=== PATIENT | male | born 1965 | race Caucasian/White ===

== ENCOUNTER 2018-09-29 23:27 | Emergency (ER) | payer SELFPAY ==
[2018-09-29 23:46] LABS: ABSOLUTE BASOPHILS # (AUTO) 0.1 10^3/uL (0.0-0.2); ABSOLUTE EOSINOPHILS # (AUTO) 0.3 10^3/uL (0.0-0.6); ABSOLUTE LYMPHOCYTES (AUTO) 3.5 10^3/uL (0.5-4.7); ABSOLUTE MONOCYTES (AUTO) 0.6 10^3/uL (0.1-1.4); ABSOLUTE NEUT (AUTO) 6.1 10^3/uL (1.7-8.2); BASOPHILS % (AUTO) 0.8 % (0-2); EOSINOPHILS % (AUTO) 2.4 % (0-6); HEMATOCRIT 45.6 % (37.9-51.0); HEMOGLOBIN 15.7 g/dL (13.5-17.0); LYMPHOCYTES % (AUTO) 33.7 % (13-45); MEAN CORPUSCULAR HEMOGLOBIN 31.3 pg (27.0-33.4); MEAN CORPUSCULAR HGB CONC 34.4 g/dL (32.0-36.0); MEAN CORPUSCULAR VOLUME 91 fl (80-97); MONOCYTES % (AUTO) 5.3 % (3-13); PLATELET COUNT 216 10^3/uL (150-450); RED BLOOD COUNT 5.02 10^6/uL (4.35-5.55); RED CELL DISTRIBUTION WIDTH 13.8 % (11.5-14.0); SEGMENTED NEUTROPHILS % (AUTO) 57.8 % (42-78); TOTAL CELLS COUNTED % (AUTO) 100 %; WHITE BLOOD COUNT 10.5 10^3/uL (4.0-10.5)
[2018-09-30 00:03] LABS: ALANINE AMINOTRANSFERASE 25 U/L (21-72); ALBUMIN 4.4 g/dL (3.5-5.0); ALCOHOL 158 mg/dL (NONE DETECTED); ALKALINE PHOSPHATASE 138 U/L (38-126); ANION GAP 15 (5-19); ASPARTATE AMINO TRANSFERASE 24 U/L (17-59); BILIRUBIN,DIRECT 0.3 mg/dL (0.0-0.4); BILIRUBIN,TOTAL 0.5 mg/dL (0.2-1.3); BLOOD UREA NITROGEN 10 mg/dL (7-20); CALCIUM 8.8 mg/dL (8.4-10.2); CARBON DIOXIDE 20 mmol/L (22-30); CHLORIDE 105 mmol/L (98-107); GLUCOSE 104 mg/dL (75-110); SODIUM 140.1 mmol/L (137-145); TOTAL PROTEIN 7.4 g/dL (6.3-8.2)
[2018-09-30 00:05] LABS: ACETAMINOPHEN < 10 ug/mL (10-30); SALICYLATE < 1.0 mg/dL (2.0-20.0)
--- NOTE | 2018-09-30 00:06 | ER Document Report ---
ED General - General Stated Complaint: POSSIBLE OVERDOSE Time Seen by Provider: 09/29/18 23:34 Notes: Patient is a 52-year-old male with history of depression, and alcohol abuse that presents to the emergency department for chief complaint of intentional overdose. Patient reportedly took a handful of [id number] naproxen tablets, reporting 15 of them, he also states he took about 15 tablets of a pain medication which he does not recall which one, he states there are friend's pain medication that was given to him he does not know what is called. This occurred about 2 hours prior to ED arrival, he called EMS for himself. He states that his dog has been sick, his girlfriend broke up with them, he has been in financial trouble, unable to afford his rent, and multiple bills, he states he is come to a point where his life is not worth living anymore. EMS had administered activated charcoal. Past Medical History: Depression, arthritis, alcohol abuse, chronic back pain Past Surgical History: Denies recent or pertinent surgical history Social History: Admits to smoking cigarettes, denies illicit drug use, but admits to drinking alcohol on a daily basis Family History: Reviewed and noncontributory for presenting illness Allergies: Reviewed, see documented allergy list. REVIEW OF SYSTEMS: Other than noted above, the 12 point review of systems was reviewed with the patient and were negative, all pertinent findings are included in the HPI. PHYSICAL EXAMINATION: Vital signs reviewed, nursing noted reviewed. GENERAL: Well-appearing, well-nourished and in no acute distress. HEAD: Atraumatic, normocephalic. EYES: Eyes appear normal, extraocular movements intact, sclera anicteric, conjunctiva are normal. ENT: nares patent, oropharynx clear without exudates. Moist mucous membranes. NECK: Normal range of motion, supple without lymphadenopathy LUNGS: Breath sounds clear to auscultation bilaterally and equal. No wheezes rales or rhonchi. HEART: Regular rate and rhythm without murmurs ABDOMEN: Soft, nontender, normoactive bowel sounds. No rebound, guarding, or rigidity. No masses appreciated. EXTREMITIES: Nontender, good range of motion, no pitting or edema. NEUROLOGICAL: No focal neurological deficits. Moves all extremities spontaneously Motor and sensory grossly intact on exam. PSYCH: Patient goes off on tangents when talking, and rambles on, he is not having any hallucinations, but does have poor insight and judgment at this time. SKIN: Warm, Dry, normal turgor, no rashes or lesions noted on exposed skin - Related Data Allergies/Adverse Reactions: No Known Allergies Allergy (Verified 09/30/18 02:30) Past Medical History - Social History Smoking Status: Current Every Day Smoker Family History: Reviewed & Not Pertinent Physical Exam - Vital signs Vitals: Temp Resp Pulse Ox 98.1 F 21 H 95 09/29/18 23:43 09/29/18 23:43 09/29/18 23:43 Course - Re-evaluation Re-evalutation: Patient seen and examined, vital signs reviewed. Medical screening testing was ordered including bloodwork, EKG, and toxicology. Results of testing were reviewed. Testing demonstrated alcohol level 157, which was expected, the patient does appear mildly intoxicated, he had ingested naproxen, there is no renal or liver impairment on his laboratory testing today, his Tylenol levels negative as well, will repeat this at 4 hours from the time of ingestion to make sure he has been do not know which prescription pain medication he took today. Patient has been stable from a hemodynamic standpoint. Repeat Tylenol level was negative and undetectable. At this point I feel that the patient is medically cleared and can be further evaluated from a psychiatric standpoint for final disposition from the emergency department. Patient updated on plan of care. Laboratory 09/29/18 09/29/18 23:35 23:35 WBC 10.5 RBC 5.02 Hgb 15.7 Hct 45.6 MCV 91 MCH 31.3 MCHC 34.4 RDW 13.8 Plt Count 216 Seg Neutrophils % 57.8 Lymphocytes % 33.7 Monocytes % 5.3 Eosinophils % 2.4 Basophils % 0.8 Absolute Neutrophils 6.1 Absolute Lymphocytes 3.5 Absolute Monocytes 0.6 Absolute Eosinophils 0.3 Absolute Basophils 0.1 Sodium 140.1 Potassium 4.0 Chloride 105 Carbon Dioxide 20 L Anion Gap 15 BUN 10 Creatinine 0.81 Est GFR ( Amer) > 60 Est GFR (Non-Af Amer) > 60 Glucose 104 Calcium 8.8 Total Bilirubin 0.5 Direct Bilirubin 0.3 Neonat Total Bilirubin Not Reportable Neonat Direct Bilirubin Not Reportable Neonat Indirect Bili Not Reportable AST 24 ALT 25 Alkaline Phosphatase 138 H Total Protein 7.4 Albumin 4.4 Salicylates < 1.0 L Acetaminophen < 10 L Serum Alcohol 158 - Vital Signs Vital signs: Temp Pulse Resp BP Pulse Ox 97.8 F 66 20 100/58 L 96 09/30/18 02:59 09/30/18 02:59 09/30/18 02:59 09/30/18 02:59 09/30/18 02:59 - Laboratory Result Diagrams: 09/29/18 23:35 09/29/18 23:35 Laboratory results interpreted by me: 09/29/18 09/30/18 23:35 02:25 Carbon Dioxide 20 L Alkaline Phosphatase 138 H Salicylates < 1.0 L Acetaminophen < 10 L < 10 L - EKG Interpretation by Me Additional EKG results interpreted by me: EKG demonstrates sinus rhythm with a ventricular rate of 67 bpm, normal axis, normal intervals, no evidence of acute ischemia. Discharge - Discharge Clinical Impression: Suicidal ideations Overdose Qualifiers: Encounter type: initial encounter Injury intent: intentional self-harm Qualified Code(s): T50.902A - Poisoning by unspecified drugs, medicaments and biological substances, intentional self-harm, initial encounter Condition: Stable Disposition: PSYCH HOSP/UNIT
[2018-09-30 06:17] LABS: APPEARANCE,URINE SLIGHTLY-CLOUDY; BILIRUBIN,URINE NEGATIVE (NEGATIVE); COLOR,URINE AMBER; GLUCOSE, URINE NEGATIVE (NEGATIVE); KETONES,URINE NEGATIVE (NEGATIVE); LEUKOCYTE ESTERASE,URINE NEGATIVE (NEGATIVE); NITRITE,URINE NEGATIVE (NEGATIVE); PROTEIN,URINE NEGATIVE (NEGATIVE); URINE SPECIFIC GRAVITY 1.028; UROBILINOGEN,URINE NEGATIVE mg/dL (<2.0)
[2018-09-30 06:33] LABS: URINE AMPHETAMINES SCREEN NEGATIVE; URINE BARBITURATES SCREEN NEGATIVE; URINE BENZODIAZEPINES SCREEN NEGATIVE; URINE COCAINE SCREEN NEGATIVE; URINE MARIJUANA (THC) SCREEN NEGATIVE; URINE METHADONE SCREEN NEGATIVE; URINE PHENCYCLIDINE SCREEN NEGATIVE
[2018-09-30] MEDS ORDERED: VENLAFAXINE HCL 37.5 MG CAP.SR.24H PO SCH (11:00)
[2018-09-30] MEDS: BUSPIRONE HCL 10 MG TABLET PO SCH ×2 (11:26→18:00)
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
--- NOTE | 2018-09-30 16:51 | ER Document Report ---
Doctor's Note Notes: 09/30/18 16:50 Rounds: Chart reviewed and patient interviewed. Patient here for evaluation for having taken an overdose of [id number] mixture of meds. Patient says he has been feeling depressed for some time now. Also has a problem with alcohol abuse. Vital signs are all essentially normal. Lab studies are unremarkable except for patient's blood alcohol of 158. Patient appears to be medically stable for transfer or discharge. Lianne Choudhury MD
--- NOTE | 2018-09-30 17:59 | EKG REPORT ---
SEVERITY:- NORMAL ECG - SINUS RHYTHM : Confirmed by: Jania Fitzpatrick 30-Sep-2018 17:58:23
[2018-09-30 18:21] VITALS: BP 125/78
[2018-09-30] MEDS ORDERED: CLONIDINE HCL 0.1 MG TABLET PO SCH (22:00)
== END 2018-09-30 18:25 ==
LOC: ER 09-30 00:51
DX: T39.312A Poisoning by propionic acid derivatives, intentional self-harm, initial encounter (principal); Y92.9 Unspecified place or not applicable; F17.210 Nicotine dependence, cigarettes, uncomplicated
CPT/HCPCS: 93005; 99285; 36415 ×2; 80307 ×5; 85025; 80053; 81001; 93010; J3490

== ENCOUNTER 2019-01-19 15:48 | Emergency (ER) | payer OTHER ==
[2019-01-19 16:01] VITALS: BP 150/82
[2019-01-19] MEDS ORDERED: KETOROLAC TROMETHAMINE 60 MG/2 ML SDV IM ONE (16:25)
[2019-01-19] MEDS ORDERED: HYDROCODONE/ACETAMINOPHEN 5-325 MG (6 TAB/ER DISP) PO PRN (16:25)
[2019-01-19] MEDS ORDERED: DEXAMETHASONE SOD PHOS INJ 10 MG/1 ML VIAL IM ONE (16:25)
[2019-01-19] MEDS ORDERED: LIDOCAINE 5% (700 MG) TRANSDERMAL ADH..PATCH TP ONE (16:25)
--- NOTE | 2019-01-19 16:32 | ER Document Report ---
HPI - HPI Time Seen by Provider: 01/19/19 16:08 Pain Level: 4 Notes: Patient is an otherwise healthy 53-year-old male presenting to the emergency department with low back pain that radiates down his right leg. He reports history of similar pain over the last few years. He reports intermittently the pain flares up and he is to come in to get "injections" which helped his back pain. Patient denies any loss of control of bowel or bladder, denies any urinary retention and denies any saddle anesthesia. Patient reports he is otherwise well and has not had any fever. - MUSCULOSKELETAL Musculoskeletal: REPORTS: Extremity pain Past Medical History - General Information source: Patient - Social History Smoking Status: Current Every Day Smoker Frequency of alcohol use: None Drug Abuse: None Family History: Reviewed & Not Pertinent Patient has suicidal ideation: No Patient has homicidal ideation: No - Medical History Medical History: Negative Renal/ Medical History: Denies: Hx Peritoneal Dialysis Surgical Hx: Negative - Immunizations Immunizations up to date: Yes Vertical Provider Document - CONSTITUTIONAL Notes: PHYSICAL EXAMINATION: GENERAL: Well-appearing, well-nourished and in no acute distress. HEAD: Atraumatic, normocephalic. EYES: Pupils equal round extraocular movements intact, conjunctiva are normal. ENT: Nares patent NECK: Normal range of motion LUNGS: No respiratory distress Musculoskeletal: Tenderness to palpation to right lumbar paraspinous area with extension to right buttock. No vertebral tenderness, step-off or deformity. NEUROLOGICAL: Face symmetric. Tongue protrudes midline. Extraocular motions intact. Pupils are 2 mm and equally reactive. Normal speech, normal gait. 5 out of 5 strength in both the distal and proximal upper and lower extremities bilaterally. Sensation is grossly intact throughout. Finger to nose testing normal. Pronator drift normal. PSYCH: Normal mood, normal affect. SKIN: Warm, Dry, normal turgor, no rashes or lesions noted. - INFECTION CONTROL TRAVEL OUTSIDE OF THE [place] IN LAST 30 DAYS: No Course - Re-evaluation Re-evalutation: Presentation of a well appearing patient complaining of acute on chronic back pain. No rapid progression of symptoms, systemic symptoms including fevers, chills, weight loss, history of recent bacterial infection, bilateral symptoms, numbness, weakness, difficulty walking, urinary retention or bowel incontinence, personal history of cancer, immunosuppression, diabetes, known AAA, or history of IV drug use. Exam is without point tenderness over vertebral bodies, pulsatile abdominal mass, and patient has symmetric and intact lower extremity strength, sensation, and reflexes without clonus. 2+ symmetric medial malleolar and dorsalis pedis pulses Based on history and physical, I have a very low suspicion of a concerning etiology of pain including epidural compression syndrome, spinal infection, transverse myelitis, malignancy, abdominal aortic aneurysm, renal colic, acute lower extremity claudication, neurogenic claudication, ankylosing spondylitis, or other intra-abdominal process. Due to absence of concerning risk factors in history and physical as well as absence of rapidly progressive, severe, or bilateral symptoms, will defer imaging at this point. Patient reports significant improvement of his pain after administration of medications here in the emergency department. Patient will be discharged home in stable condition with a prescription for Flexeril and instructions to take ibuprofen. Patient understands ED return precautions. - Vital Signs Vital signs: Temp Pulse Resp BP Pulse Ox 97.8 F 96 18 150/82 H 01/19/19 15:59 01/19/19 15:59 01/19/19 15:59 01/19/19 15:59 Discharge - Discharge Clinical Impression: Back pain Qualifiers: Back pain location: low back pain Chronicity: chronic Back pain laterality: right Sciatica presence: with sciatica Sciatica laterality: sciatica of right side Qualified Code(s): M54.41 - Lumbago with sciatica, right side; G89.29 - Other chronic pain Condition: Stable Disposition: HOME, SELF-CARE Additional Instructions: You have been seen in the Emergency Department (ED) today for back pain. Your workup and exam have not shown any acute abnormalities and you are likely suffering from muscle strain or possible problems with your discs, but there is no treatment that will fix your symptoms at this time. Please take the muscle relaxer that has been prescribed as directed. Take ibuprofen 600 mg every 6 hours. You should also purchase a local lidocaine cream such as "aspercreme with lidocaine" and use per bottle instructions to the affected area. Apply heat to the area as often as you are able. Continue to keep active and avoid prolonged periods of bed rest. Please follow up with your doctor as soon as possible regarding today's ED visit and your back pain. Return to the ED for worsening back pain, fever, weakness or numbness of either leg, or if you develop either (1) an inability to urinate or have bowel movements, or (2) loss of your ability to control your bathroom functions (if you start having "accidents"), or if you develop other new symptoms that concern you.concern you. Prescriptions: Cyclobenzaprine HCl [Flexeril 10 mg Tablet] 10 mg PO TID #21 tablet
== END 2019-01-19 16:55 | disposition home or self-care (01) ==
LOC: ER 15:48
DX: M54.41 Lumbago with sciatica, right side (principal); G89.29 Other chronic pain; M79.604 Pain in right leg; F17.200 Nicotine dependence, unspecified, uncomplicated
CPT/HCPCS: 99283; 96372; J1885; J1100

== ENCOUNTER 2019-01-24 11:56 | Emergency (ER) | payer OTHER ==
[2019-01-24] MEDS ORDERED: KETOROLAC TROMETHAMINE 60 MG/2 ML SDV IM ONE (12:08)
--- NOTE | 2019-01-24 12:09 | ER Document Report ---
ED Medical Screen (RME) - General Chief Complaint: Back Pain Stated Complaint: BACK PAIN Time Seen by Provider: 01/24/19 12:02 Mode of Arrival: Ambulatory Information source: Patient Notes: Patient presents complaining of a flareup of right lower back pain that radiates to the right lower extremity. Patient states pain is typical flareups that he has had in the past. Patient denies any new injury, fever, urinary retention or incontinence. I have greeted and performed a rapid initial assessment of this patient. A comprehensive ED assessment and evaluation of the patient, analysis of test results and completion of the medical decision making process will be conducted by additional ED providers. TRAVEL OUTSIDE OF THE [place] IN LAST 30 DAYS: No - Related Data Allergies/Adverse Reactions: No Known Allergies Allergy (Verified 01/24/19 12:06) Past Medical History Renal/ Medical History: Denies: Hx Peritoneal Dialysis - Immunizations Immunizations up to date: Yes Physical Exam - Vital signs Vitals: Temp Pulse Resp BP Pulse Ox 97.6 F 100 18 110/74 97 01/24/19 12:01 01/24/19 12:01 01/24/19 12:01 01/24/19 12:01 01/24/19 12:01 - General General appearance: Appears well, Alert Notes: Right lower lumbar tenderness, normal gait Course - Vital Signs Vital signs: Temp Pulse Resp BP Pulse Ox 97.6 F 100 18 110/74 97 01/24/19 12:01 01/24/19 12:01 01/24/19 12:01 01/24/19 12:01 01/24/19 12:01
--- NOTE | 2019-01-24 13:11 | ER Document Report ---
HPI - HPI Time Seen by Provider: 01/24/19 12:02 Pain Level: 5 Context: Patient is a 53-year-old male with a history of chronic back pain who presents to the emergency department with a chief complaint of right lower back pain. Patient reports this is been present for 8 days. Patient reports he was seen here on Friday with the same symptoms and was given a muscle relaxer and a narcotic medication. Patient states while he was here he was given an injection. Patient states he has been taking medications as prescribed without help. Patient reports this does feel like his normal flare of right lower back pain. Patient reports a history of sciatica and states that there is a burning sensation down his right leg. Patient does report numbness to the right leg. Patient denies saddle anesthesia or loss of bowel or bladder. Patient reports the pain is constant and does not get worse with certain movements. - MUSCULOSKELETAL Musculoskeletal: REPORTS: Extremity pain Past Medical History - General Information source: Patient - Social History Smoking Status: Current Every Day Smoker Lives with: Family Family History: Reviewed & Not Pertinent Patient has suicidal ideation: No Patient has homicidal ideation: No - Past Medical History Cardiac Medical History: Reports: None Pulmonary Medical History: Reports: None EENT Medical History: Reports: None Neurological Medical History: Reports: None Endocrine Medical History: Reports: None Renal/ Medical History: Reports: None. Denies: Hx Peritoneal Dialysis Malignancy Medical History: Reports None GI Medical History: Reports: None Musculoskeletal Medical History: Reports None Skin Medical History: Reports None Psychiatric Medical History: Reports: None Traumatic Medical History: Reports: None Infectious Medical History: Reports: None Past Surgical History: Reports: None - Immunizations Immunizations up to date: Yes Vertical Provider Document - CONSTITUTIONAL Agree With Documented VS: Yes Exam Limitations: No Limitations General Appearance: No Apparent Distress - INFECTION CONTROL TRAVEL OUTSIDE OF THE [place] IN LAST 30 DAYS: No - HEENT HEENT: Atraumatic, Normocephalic, PERRLA - RESPIRATORY Respiratory: Breath Sounds Normal, No Respiratory Distress - CARDIOVASCULAR Cardiovascular: Regular Rate, Regular Rhythm - GI/ABDOMEN Gastrointestinal: Abdomen Soft, Abdomen Non-Tender - BACK Notes: Right paraspinal tenderness with palpation. There is no cervical, thoracic or lumbar midline tenderness. - NEURO Level of Consciousness: Awake, Alert, Appropriate - DERM Integumentary: Warm, Dry, No Rash Course - Re-evaluation Re-evalutation: 01/24/19 13:11 Patient reports in the past he has had been to multiple urgent cares and gotten an injection of some type of medication which did help with this pain. Patient states he does not know the name of this injection. Patient states he does not have a primary care physician and has just been dealing with this pain for years. Patient reports having chronic back pain since the . 01/24/19 13:45 Patient moved to a room with a stretcher to perform a more thorough examination of his back. Patient in no acute distress. Patient is ambulating with a steady gait. Normal speech, normal gait. No focal neurological deficits, normal upper and lower extremity strength. When performing the straight leg raise test (negative) due to the patient complaints of increased right lower back pain as well as pain to the back of the right thigh. 14:15 I did offer the patient a CT scan of the lower back since the patient states he has not had any recent imaging. Patient states he does not want this at this time. Patient reports he has seen multiple doctors in the past and they cannot give him any answers as to why he gets these flares in his back. Patient denies injury or fall. We will place the patient on a prednisone taper. Patient was given strict return precautions. - Vital Signs Vital signs: Temp Pulse Resp BP Pulse Ox 97.6 F 100 18 110/74 97 01/24/19 12:01 01/24/19 12:01 01/24/19 12:01 01/24/19 12:01 01/24/19 12:01 Discharge - Discharge Clinical Impression: Sciatica of right side, Pain of back and right lower extremity Condition: Stable Disposition: HOME, SELF-CARE Additional Instructions: Today you are seen the emergency department for low back pain. Your symptoms are consistent with sciatica as he reports this does feel like a flare of your chronic pain. We have politely declined a CT scan of the lumbar spine. I am placing you on a steroid taper. Please take these as prescribed. Please return if your symptoms change or worsen to include loss of bowel or bladder, increased numbness or tingling or inability to usual lower extremities. LOW BACK PAIN: Three out of every four people will have an episode of disabling back pain during their lifetime. Most commonly the pain is due to straining of the muscles and ligaments in the low back. Usual treatment includes: (1) Rest on a firm surface. Avoid lying on your stomach. (2) Ice pack the painful area. After a few days, gentle heat may be used intermittently to relax the area, or ice packs can be continued. (3) Medication may be needed -- muscle relaxers and antiinflammatory medicines are commonly used. (4) As the back improves, exercises are prescribed to strengthen the back and a bdominal muscles. Your doctor will advise you on the proper care for your back at each stage in your recovery. You may be better in a few days -- or healing may take several weeks. If new symptoms of a "herniated disc" (radiation of pain, numbness, or tingling down the back of the leg or weakness in the leg) occur, you should be re-examined. Further testing may be necessary. PAIN MEDICATION INJECTION: You have received an injection of a pain medication. You should experience significant pain relief within 45 minutes. If this injection was a narcotic -- it will impair your judgement, slow your reaction time and make you sleepy (as well as relieve your pain). Narcotics also can cause nausea. You should not drive, work with machinery, or perform any task requiring m ental alertness until all effects of the medication are gone -- six to eight hours. Do not take any alcohol, or sedatives, and do not take any other medication without checking with your physician. ORAL NARCOTIC MEDICATION: You have been given a prescription for pain control. This medication is a narcotic. It's best taken with food, as nausea can result if taken on an empty stomach. Don't operate machinery or drive within six hours of taking this medication. Do not combine this medicine with alcohol, or with any medication which can cause sedation (such as cold tablets or sleeping pills) unless you get permission from the physician. Narcotics tend to cause constipation. If possible, drink plenty of fluids and eat a diet high in fiber and fruits. Please be aware that prescription narcotics also have the potential for abuse. People become addicted to these medications because of the general sense of wellbeing that they induce. This feeling along with a significant reduction in tension, anxiety, and aggression provides a stimulating seductive quality to these drugs. Once your pain is under control, we encourage you to discard your unused narcotics. MUSCLE RELAXERS: Muscle relaxing medications are usually prescribed for acute muscle spasm or injury to the neck and back. They are often combined with antiinflammatory pain medication for increased relief. You may stop the muscle relaxer when the pain and stiffness have improved. Start the medication again if spasms recur. Muscle relaxers may cause drowsiness, especially with the first dose. Do not operate machinery or drive while under the effects of the medication. Most muscle relaxers last up to 24 hours. Do not combine the medication with alcohol. ICE PACKS: Apply ice packs frequently against the painful area. Many different schedules are recommended, such as "20 minutes on, 20 minutes off" or "one hour ice, two hours rest." If you need to work, you may need to go longer between ice treatments. You should plan to have the area ice packed AT LEAST one fourth of the time. The ice should be applied over the wrap, tape, or splint, or over a layer of cloth -- not directly against the skin. Some ice bags have a built-in cloth and can be put directly on the skin. WARM PACKS: After approximately two days, apply gentle heat (such as a heating pad or hot water bottle) for about 20 to 30 minutes about every two hours -- at least four times daily. Warmth and elevation will help you make a more rapid recovery, and will ease the pain considerably. Do not use HOT heat, and never apply heat for longer than 30 minutes. The continuous heat can invisibly damage skin and muscles -- even when no burn is seen on the surface. Damaged muscles can make you MORE sore. FOLLOW-UP CARE: If you have been referred to a physician for follow-up care, call the physicians office for an appointment as you were instructed or within the next two days. If you experience worsening or a significant change in your symptoms, notify the physician immediately or return to the Emergency Department at any time for re-evaluation. Prescriptions: Prednisone [Deltasone 10 mg Tablet] 10 mg PO ASDIR PRN #21 tablet PRN Reason:
[2019-01-24] MEDS ORDERED: PREDNISONE 20 MG TABLET PO ONE (14:04)
[2019-01-24 14:21] VITALS: BP 120/83
== END 2019-01-24 14:23 | disposition home or self-care (01) ==
LOC: ER 11:56
DX: M54.31 Sciatica, right side (principal); G89.29 Other chronic pain; M54.5 Low back pain; F17.200 Nicotine dependence, unspecified, uncomplicated
CPT/HCPCS: 99283; 96372; J1885; J7512

== ENCOUNTER → 2020-01-20 | Outpatient (CLI) | payer OTHER ==
--- NOTE | 2020-01-20 16:17 | RADIOLOGY REPORT (SQ) ---
EXAM DESCRIPTION: MRI LUMBAR SPINE WITHOUT IMAGES COMPLETED DATE/TIME: 01/20/2020 4:02 pm REASON FOR STUDY: M51.36 OTHER INTERVERTEBRAL DISC DEGENERATION, LUMBAR REGION M51.36 OTHER INTERVE RTEBRAL DISC DEGENERATION, LUMBAR REGION COMPARISON: None. TECHNIQUE: Sagittal and Axial imaging includes T1, T2, STIR and gradient echo sequences. Coronal T2/ HASTE imaging. LIMITATIONS: None. FINDINGS: VISUALIZED UPPER ABDOMEN: Limited evaluation. No acute or suspicious findings suggested. SEGMENTATION: No transitional anatomy. The lowest well-developed disc space is labeled L5-S1. ALIGNMENT: Anatomic. VERTEBRAE: Intact. BONE MARROW: Normal. No marrow replacement or reactive changes. DISC SIGNAL: There is decreased T2 signal at L4-5. There is narrowing of the disc. POSTERIOR ELEMENTS: Generally intact. No pars defect evident. HARDWARE: None in the spine. CORD AND CONUS: Normal in size and signal intensity. Conus at the T12-L1 level. SOFT TISSUES: No aortic aneurysm seen. No bulky retroperitoneal adenopathy or mass. No paraspinal mas s or fluid. L1-L2: There is mild concentric disc bulging with slight left paracentral and right paracentral promi nence. Mild central canal stenosis. No significant foraminal stenosis. L2-L3: No significant spinal stenosis or exit foraminal stenosis. L3-L4: Mild concentric disc bulging that slightly displaces the traversing nerve roots, left more xiao n right. No foraminal stenosis. L4-L5: Annular tear. Circumferential disc bulge with mild central disc protrusion that may displace the traversing nerve roots. No foraminal stenosis. L5-S1: No significant spinal stenosis or exit foraminal stenosis. LOWER THORACIC: Incompletely imaged. No stenosis seen. SACRUM: Visualized upper sacrum intact. OTHER: No other significant findings. IMPRESSION: Disc bulging at multiple levels as described. Mild central canal stenoses are seen at L 1-2, L3-4, and L4-5. No significant foraminal stenoses. TECHNICAL DOCUMENTATION: JOB ID: [id number] 2010 [employer]- All Rights Reserved Reading location - IP/workstation name: [email or web address]
== END ==
LOC: RAD 15:22
PROVIDERS: ATTEND Nurse Practitioner Primary Care
DX: M51.36 Other intervertebral disc degeneration, lumbar region (principal)
CPT/HCPCS: 72148